=== PATIENT | male | born 1955 ===

== ENCOUNTER 2016-11-07 10:14 | Emergency (ER) | payer OTHER ==
[2016-11-07 11:01] VITALS: BP 130/67
--- NOTE | 2016-11-07 11:12 | UC ---
Truncal Trauma HPI - HPI Summary HPI Summary: Patient tripped and fell against the side of the bathtub. pain ans swelling noted to the right side of ribs, denies SOB, hard to take deep breaths. - History Of Current Complaint Chief Complaint: UCChestPain Stated Complaint: RIGHT RIB PAIN Time Seen by Provider: 11/07/16 10:55 Hx Obtained From: Patient Onset/Duration: Sudden Onset, Lasting Days Onset Of Pain: Immediate Severity Initially: Severe Severity Currently: Severe Mechanism Of Injury: Direct Blow, Fall From A Standing Position Aggravating Factor(s): Movement, Deep Breathing, Cough Alleviating factor(s): Nothing Associated Signs And Symptoms: Positive: Negative - Allergies/Home Medications Allergies/Adverse Reactions: Allergies Allergy/AdvReac Type Severity Reaction Status Date / Time No Known Allergies Allergy Verified 11/07/16 10:56 Home Medications: Home Medications Ibuprofen TAB* [Motrin TAB* 800 MG] 800 mg PO Q8H PRN 11/07/16 [History Confirmed 11/07/16] PMH/Surg Hx/FS Hx/Imm Hx Previously Healthy: Yes Cardiovascular History Of: Reports: Cardiac Disorders - Atrial Flutter s/p "fluid around heart", Hypertension Respiratory History Of: Denies: Asthma - Surgical History Surgical History: Yes Surgery Procedure, Year, and Place: ESOPHAGEAL WRAP- 17 YRS AGO. ROTATOR CUFF REPAIR RT - 8 YRS [facility]. APPENDIX - CHILD. right wrist/carpel tunnel - Family History Known Family History: Positive: Hypertension - Social History Alcohol Use: Occasionally Substance Use Type: None Smoking Status (MU): Never Smoked Tobacco - Immunization History Most Recent Influenza Vaccination: May 2016 Most Recent Tetanus Shot: 01/07/16 Review of Systems Constitutional: Negative Skin: Negative Eyes: Negative ENT: Negative Respiratory: Negative Cardiovascular: Negative Gastrointestinal: Negative Genitourinary: Negative Motor: Negative Neurovascular: Negative Musculoskeletal: Arthralgia, Edema, Myalgia Neurological: Negative Psychological: Negative All Other Systems Reviewed And Are Negative: Yes Physical Exam Triage Information Reviewed: Yes Appearance: Well-Appearing, Well-Nourished, Pain Distress Vital Signs: Initial Vital Signs Temp 97.9 F 11/07/16 10:54 Pulse 84 11/07/16 10:54 Resp 18 11/07/16 10:54 BP 130/67 11/07/16 10:54 Pulse Ox 98 11/07/16 10:54 Vital Signs Reviewed: Yes Eye Exam: Normal Eyes: Positive: Conjunctiva Clear ENT Exam: Normal ENT: Positive: Normal ENT inspection, Hearing grossly normal, Pharynx normal, TMs normal Dental Exam: Normal Neck exam: Normal Respiratory Exam: Normal Respiratory: Positive: Chest non-tender, Lungs clear, Normal breath sounds Cardiovascular Exam: Normal Cardiovascular: Positive: RRR, No Murmur, Pulses Normal Abdominal Exam: Normal Abdomen Description: Positive: Nontender, No Organomegaly, Soft Bowel Sounds: Positive: Present Musculoskeletal Exam: Normal Musculoskeletal: Positive: ROM Limited @ - in right upper extremity and trunk twisting, Edema @ - mid right ribs Neurological Exam: Normal Neurological: Positive: Alert, Muscle Tone Normal Psychological Exam: Normal Skin Exam: Normal - no bruising noted Skin: Positive: Other Truncal Trauma Course/Dx - Course Course Of Treatment: hx obtained, exam performed, xray obtained he has a non displaced fracture of the right 10th rib., educated on the importance of mobility and deep breaths. - Differential Dx/Diagnosis Differential Diagnosis/HQI/PQRI: Chest Wall Contusion, Rib Fracture Provider Diagnoses: rib fracture. dyspnea Discharge - Discharge Plan Condition: Stable Disposition: HOME Patient Education Materials: Rib Fracture (ED) Additional Instructions: continue to ice or heat which ever feels best. Ibuprofen for pain and swelling. Practice taking deep breaths multiple times a day. move frequently to prevent pnuemonia. follow up with any fever or increase in respiratory symptoms.
--- NOTE | 2016-11-07 11:24 | RAD ---
Indication: Right rib injury. 3 views of the right ribs demonstrates suggestion of a nondisplaced fracture of the right 10th rib posteriorly. No pneumothorax is identified. IMPRESSION: There appears to be a nondisplaced fracture of the right 10th rib posteriorly.
== END 2016-11-07 11:39 | disposition home or self-care (01) ==
LOC: UCCORT 10:14
DX: S22.31XA Fracture of one rib, right side, initial encounter for closed fracture (principal); W01.198A Fall on same level from slipping, tripping and stumbling with subsequent striking against other object, initial encounter; Y93.9 Activity, unspecified; Y92.002 Bathroom of unspecified non-institutional (private) residence as the place of occurrence of the external cause; R06.00 Dyspnea, unspecified; I48.92 Unspecified atrial flutter
CPT/HCPCS: 99211; G0463

== ENCOUNTER 2016-11-15 13:15 | Emergency (ER) | payer OTHER ==
[2016-11-15 14:04] VITALS: BP 118/72
--- NOTE | 2016-11-15 14:27 | RAD ---
HISTORY: Congestion, history of rib fracture COMPARISONS: Rib series dated November 07, 2016 VIEWS: 2: Frontal dual-energy and lateral views of the chest. FINDINGS: CARDIOMEDIASTINAL SILHOUETTE: The cardiomediastinal silhouette is normal. KENDELL: The kendell are normal. PLEURA: The costophrenic angles are sharp. No pleural abnormalities are noted. LUNG PARENCHYMA: There is hyperinflation with flattening of the diaphragm and expansion of the AP diameter of the chest. ABDOMEN: The upper abdomen is clear. There is no subphrenic gas. BONES AND SOFT TISSUES: No bone or soft tissue abnormalities are noted. The right rib fracture noted on previous examination is not well-visualized on the current examination. OTHER: None. IMPRESSION: HYPERINFLATION, CONSISTENT WITH COPD. NO ACTIVE CARDIOPULMONARY DISEASE.
--- NOTE | 2016-11-15 14:44 | UC ---
Cardiac HPI - HPI Summary HPI Summary: Patient fell ~ 10 days ago in the bathtub and was diagnosed with a fractured rib. Patient states he had pain for several days after the injury, but then it seemed to improve. Starting 3 days ago again he began having more pain. Denies assoc SOB. Reports fatigue. He returns for re-evaluation. - History of Current Complaint Chief Complaint: UCChestPain Stated Complaint: RE CK/RIGHT SIDE RIB PAIN - Allergy/Home Medications Allergies/Adverse Reactions: Allergies Allergy/AdvReac Type Severity Reaction Status Date / Time No Known Allergies Allergy Verified 11/15/16 14:00 PMH/Surg Hx/FS Hx/Imm Hx Cardiovascular History Of: Reports: Cardiac Disorders - Atrial Flutter s/p "fluid around heart", Hypertension Respiratory History Of: Denies: Asthma - Surgical History Surgical History: Yes Surgery Procedure, Year, and Place: ESOPHAGEAL WRAP- 17 YRS AGO. ROTATOR CUFF REPAIR RT - 8 YRS [facility]. APPENDIX - CHILD. right wrist/carpel tunnel - Family History Known Family History: Positive: Hypertension - Social History Alcohol Use: Occasionally Substance Use Type: None Smoking Status (MU): Never Smoked Tobacco - Immunization History Most Recent Influenza Vaccination: May 2016 Most Recent Tetanus Shot: 01/07/16 Review of Systems Constitutional: Negative Skin: Negative Eyes: Negative ENT: Negative Respiratory: Negative Cardiovascular: Chest Pain Gastrointestinal: Negative Genitourinary: Negative Motor: Negative Neurovascular: Negative Musculoskeletal: Negative Neurological: Negative Psychological: Negative All Other Systems Reviewed And Are Negative: Yes Physical Exam Triage Information Reviewed: Yes Appearance: Pain Distress - mild Vital Signs: Initial Vital Signs Temp 98.4 F 11/15/16 13:56 Pulse 80 11/15/16 13:56 Resp 16 11/15/16 13:56 BP 118/72 11/15/16 13:56 Pulse Ox 99 11/15/16 13:56 Vital Signs Reviewed: Yes Respiratory: Positive: Lungs clear, Normal breath sounds, Other: - TTP over anterior lower chest along MCL Cardiovascular: Positive: RRR, No Murmur Abdomen Description: Positive: Nontender Diagnostics - Laboratory Diagnostic Studies Completed/Ordered: CXR - NAD, prior fx not well visualized - Assessment/Plan Course Of Treatment: This is a 61 yo male with recent rib fracture who returns with increased pain. CXR is WNL. Offered stronger pain medication which the patient declined. Recommended use of a heating pad and his ibuprofen for pain relieft. Suggested that rib fractures can be painful for several weeks. - Differential Diagnoses - Chest Pain Differential Diagnosis/HQI/PQRI: Chest Wall, Other: - pneumothorax - Clinical Impression Provider Diagnoses: Rib fracture Discharge - Discharge Plan Condition: Stable Disposition: HOME Patient Education Materials: Rib Fracture (ED) Referrals: Kenn Dawkins MD [Primary Care Provider] - Additional Instructions: Activity: Limit heavy lifting/pulling Instructions: 1. Continue use of ibuprofen 2. Try a heating pad over the painful area for additional pain relief
== END 2016-11-15 14:40 | disposition home or self-care (01) ==
LOC: UCCORT 13:15
DX: S22.31XS Fracture of one rib, right side, sequela (principal); W18.2XXS Fall in (into) shower or empty bathtub, sequela
CPT/HCPCS: 71020; 99211; G0463